=== PATIENT | female | born 1980 | race Caucasian/White ===

== ENCOUNTER 2021-09-08 09:42 | Outpatient (REF) | payer SELFPAY ==
[2021-09-08 20:30] LABS: COVID-19 RT-PCR UVMMC Result Negative (Negative)
== END 2021-09-08 09:43 | disposition home or self-care (01) ==
LOC: LBN 09:42
PROVIDERS: PCP Family Medicine; Visit Provider Nurse Practitioner Family
DX: Z20.822 Contact with and (suspected) exposure to COVID-19 (principal)
CPT/HCPCS: U0003